=== PATIENT | female | born 1985 | race African-American/Black ===

== ENCOUNTER → 2016-04-17 | Outpatient (REF) | payer OTHER ==
[~2016-04-17] MED LIST: ACET50TA PO; BUPR10TASR PO; IBUP-1114 PO; PRENTAB55 PO; REME30TA PO
== END ==
LOC: M LAB REF 16:34
PROVIDERS: ATTEND Advanced Practice Midwife
DX: O13.3 Gestational [pregnancy-induced] hypertension without significant proteinuria, third trimester (principal); Z3A.00 Weeks of gestation of pregnancy not specified

== ENCOUNTER 2016-04-21 00:56 | Inpatient (IN) | payer OTHER ==
[2016-04-21] VITALS (46 sets, daily range): BP systolic 100–171; BP diastolic 53–90
[~2016-04-21] VITALS: Ht 157.5 cm; Wt 81.0 kg
[2016-04-21] MEDS ORDERED: LR 1,000 ML IV SCH (01:12)
[2016-04-21] MEDS ORDERED: PENICILLIN G POTASSIUM IV 5 MU in D5W MINI-BAG PLUS 100 ML IV STA (01:12)
[2016-04-21 02:07] LABS: MEAN CORPUSCULAR HEMOGLOBIN 30.5 pg (27.0-33.0); MEAN CORPUSCULAR HGB CONC 34.9 g/dl (32.0-36.5); MEAN CORPUSCULAR VOLUME 87.3 fl (80.0-96.0); RED CELL DISTRIBUTION WIDTH 12.7 % (11.5-14.5)
[2016-04-21] MEDS ORDERED: BUTORPHANOL 2 MG/ML INJ (J0595) IV ONE (02:15)
[2016-04-21] MEDS ORDERED: OXYTOCIN DRIP 30 UNITS in APPROPRIATE DILUENT 1 EA IV SCH (02:15)
[2016-04-21] MEDS ORDERED: PROMETHAZINE INJ 25 MG/ML VIAL (J2550) IV ONE (02:15)
[2016-04-21] MEDS ORDERED: FENTANYL 2MCG/ML ROPIVACAINE 0.2% NACL 250 ML CADD As Ordered ONE (02:40)
[2016-04-21] MEDS: PENICILLIN G POTASSIUM IV 2.5 MU in D5W 100 ML IV SCH ×2 (06:44→10:18)
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
[2016-04-21] MEDS ORDERED: PRENTAB55 PO (12:41)
[2016-04-21] MEDS ORDERED: BUPR10TASR PO (12:41)
[2016-04-21] MEDS ORDERED: REME30TA PO (12:41)
[2016-04-21] MEDS ORDERED: DOCUSATE SODIUM 100 MG CAP PO PRN (14:15)
[2016-04-21] MEDS ORDERED: MEASLES,MUMPS,RUBELLA VACCINE INJ (MMR-II) (90707) SC SCH (14:15)
[2016-04-21] MEDS ORDERED: ACETAMINOPHEN 500 MG TAB PO PRN (14:15)
[2016-04-21] MEDS ORDERED: ONDANSETRON 4MG/2ML VIAL (J2405) IV PRN (14:15)
[2016-04-21] MEDS ORDERED: OXYTOCIN DRIP 30 UNITS in APPROPRIATE DILUENT 1 EA IV ONE (14:15)
[2016-04-21] MEDS ORDERED: RHOGAM 300 MCG (1500 IU) INJ (J2790) IM SCH (14:15)
[2016-04-21] MEDS ORDERED: METHYLERGONOVINE MALEATE 0.2 MG TAB PO PRN (14:15)
[2016-04-21] MEDS ORDERED: DIBUCAINE 1% OINTMENT 30GM TOP PRN (14:15)
[2016-04-21] MEDS: IBUPROFEN 800 MG TAB PO PRN (16:47)
--- NOTE | 2016-04-21 17:44 | DN ---
DATE: 04/21/2016 PREDELIVERY DIAGNOSES: 37+ weeks, labor, spontaneous rupture of membranes. POSTDELIVERY DIAGNOSIS: Delivered. PROCEDURE: Spontaneous vaginal delivery. PANEL WIRER: Dr. Moise Damico ANESTHESIA: Epidural. FINDINGS: 6 pounds 6 ounces or 2888 grams female . scores 9 and 9. DELIVERY SUMMARY: After a short second stage, the patient spontaneously delivered a 6 pounds 6 ounces female infant under epidural anesthesia. There was no nuchal cord. The shoulders delivered spontaneously with ease. The cried spontaneously and was handed to the mother. The cord was doubly clamped and cut. The placenta delivered easily. The placenta appeared to be intact. The patient received intravenous Pitocin immediately after delivery of the placenta. There were no vaginal lacerations present.
[2016-04-22] MEDS: IBUPROFEN 800 MG TAB PO PRN ×2 (00:25→17:12)
[2016-04-22 05:48] VITALS: BP 105/64
[2016-04-22] MEDS: PRENATAL VITAMIN TAB PO SCH ×2 (07:12→07:44)
[2016-04-22 18:00] VITALS: BP 120/65
[2016-04-22] MEDS: PERCOCET 5MG/325MG TAB PO PRN (22:38)
[2016-04-23] MEDS: IBUPROFEN 800 MG TAB PO PRN (02:59)
[2016-04-23] MEDS: PERCOCET 5MG/325MG TAB PO PRN (04:05)
[2016-04-23 06:00] VITALS: BP 119/79
[2016-04-23] MEDS: PRENATAL VITAMIN TAB PO SCH (08:12)
[2016-04-23] MEDS ORDERED: IBUP-1114 PO (10:23)
[2016-04-23] MEDS ORDERED: ACET50TA PO (10:23)
== END 2016-04-23 11:40 | disposition home or self-care (01) | DRG 560 ==
LOC: M LDO 00:56 → M LDI 01:09 → M OBS 17:57
PROVIDERS: ADMIT Specialist; ATTEND Specialist
PROC: 10E0XZZ Delivery of Products of Conception, External Approach (ICD-10-PCS; principal; 2016-04-21)
DX: O10.02 Pre-existing essential hypertension complicating childbirth (principal); F17.210 Nicotine dependence, cigarettes, uncomplicated; Z37.0 Single live birth; Z3A.37 37 weeks gestation of pregnancy; O99.334 Smoking (tobacco) complicating childbirth; O99.824 Streptococcus B carrier state complicating childbirth

== ENCOUNTER 2018-04-04 20:26 | Emergency (ER) | payer OTHER ==
[~2018-04-04] VITALS: Ht 157.5 cm; Wt 78.2 kg
[~2018-04-04 20:26] MED LIST changes: -ACET50TA PO; +MAPA500T17 PO
[2018-04-04 20:35] VITALS: BP 120/53
[2018-04-04 21:15] LABS: BASO % 0.3 % (0.0-1.0); EOS # 0.3 10^3/uL (0.0-0.50); HEMATOCRIT 39.3 % (36.0-47.0); HEMOGLOBIN 13.1 g/dl (12.0-15.5); LYMPH # 4.3 10^3/uL (1.5-4.5); LYMPH % 41.4 % (24.0-44.0); MEAN CORPUSCULAR HEMOGLOBIN 29.1 pg (27.0-33.0); MEAN CORPUSCULAR HGB CONC 33.3 g/dl (32.0-36.5); MEAN CORPUSCULAR VOLUME 87.3 fl (80.0-96.0); MONO # 0.6 10^3/uL (0.0-0.8); MONO % 5.9 % (0.0-5.0); NEUTROPHILS # 5.2 10^3/uL (1.8-7.7); NEUTROPHILS % 49.1 % (36.0-66.0); PLATELET COUNT, AUTOMATED 242 10^3/uL (150-450); WHITE BLOOD COUNT 10.5 10^3/uL (4.0-10.0)
[2018-04-04 21:54] LABS: ALBUMIN 3.9 GM/DL (3.2-5.2); ALT/SGPT 24 U/L (12-78); BILIRUBIN,DIRECT < 0.1 MG/DL (0.0-0.2); BILIRUBIN,TOTAL 0.3 MG/DL (0.2-1.0); BLOOD UREA NITROGEN 11 MG/DL (7-18); CARBON DIOXIDE LEVEL 28 MEQ/L (21-32); CHLORIDE LEVEL 105 MEQ/L (98-107); GLOMERULAR FILTRATION RATE > 60.0 (>60); GLUCOSE, FASTING 85 MG/DL (70-100); HCG, SERUM QUANTITATIVE < 1.0 MIU/ML; POTASSIUM SERUM 4.2 MEQ/L (3.5-5.1); SODIUM LEVEL 139 MEQ/L (136-145); TOTAL PROTEIN 7.2 GM/DL (6.4-8.2)
--- NOTE | 2018-04-04 22:49 | REPVR ---
EXAM: US Pelvis Complete, Transabdominal and US Pelvis, Transvaginal EXAM DATE/TIME: 04/04/2018 10:16 PM CLINICAL HISTORY: 33 years old, female; Pain; Pelvic pain; Additional info: Left-sided pelvic pain x 1 week TECHNIQUE: Real-time transabdominal and transvaginal pelvic ultrasound (complete) with image documentation. Transvaginal imaging was used for better evaluation of the endometrium and adnexa. COMPARISON: CT ABD PELVIS W/O CONTRAST 08/02/2014 11:05 AM FINDINGS: Uterus/cervix: Uterus measures 8.6 x 4.7 x 6.6 cm. Endometrial echocomplex measures 8 mm. Right adnexa: Right ovary measures 2.2 x 1.1 x 2 cm. RI 0.63. Normal vascularity. Left adnexa: Left ovary measures 2.7 x 2.3 x 2.5 cm. RI 0.44. Normal vascularity. Free fluid: Trace free fluid cul-de-sac. Bladder: Normal. IMPRESSION: Normal study. Electronically signed by: Gus Bernardo On 04/04/2018 22:48:59 PM
[2018-04-04] MEDS ORDERED: metroNIDAZOLE (FLAGYL) 500 MG TAB PO ONE (23:00)
[2018-04-04] MEDS ORDERED: FLAG500T PO (23:01)
== END 2018-04-04 23:36 | disposition home or self-care (01) ==
LOC: M ED 20:26 → EDBD 20:26 → M ED 23:36
DX: N76.0 Acute vaginitis (principal); F17.210 Nicotine dependence, cigarettes, uncomplicated

== ENCOUNTER → 2018-07-29 | Outpatient (REF) | payer BC ==
[~2018-07-29] MED LIST changes: +FLAG500T PO; -MAPA500T17 PO; +MAPA500T2 PO
[2018-07-29 18:24] LABS: HEMATOCRIT 36.7 % (36.0-47.0); HEMOGLOBIN 12.4 g/dl (12.0-15.5); MEAN CORPUSCULAR HEMOGLOBIN 29.2 pg (27.0-33.0); MEAN CORPUSCULAR HGB CONC 33.8 g/dl (32.0-36.5); MEAN CORPUSCULAR VOLUME 86.6 fl (80.0-96.0); PLATELET COUNT, AUTOMATED 237 10^3/uL (150-450); RED BLOOD COUNT 4.24 10^6/uL (4.00-5.40); WHITE BLOOD COUNT 10.4 10^3/uL (4.0-10.0)
[2018-07-29 18:46] LABS: HCG, SERUM QUANTITATIVE 38690 MIU/ML
[2018-07-30 10:05] LABS: RUBELLA IgG QUALITATIVE IMMUNE (IMMUNE)
[2018-07-30 10:34] LABS: HEPATITIS C VIRUS ABY INDEX < 0.0 INDEX (<0.8); HIV 1&2 SCREEN CENTAUR NEGATIVE (NEGATIVE)
== END ==
LOC: M LAB REF 17:45
PROVIDERS: ATTEND Obstetrics & Gynecology
DX: O36.80X0 Pregnancy with inconclusive fetal viability, not applicable or unspecified (principal); Z3A.00 Weeks of gestation of pregnancy not specified

== ENCOUNTER 2018-08-20 14:30 | Emergency (ER) | payer BC ==
[~2018-08-20] VITALS: Ht 157.5 cm; Wt 80.8 kg
[2018-08-20] MEDS ORDERED: PREN29TA4 PO (14:38)
[2018-08-20] MEDS ORDERED: NITROFURANTOIN (MACROBID) 100 MG CAP PO ONE (16:15)
[2018-08-20 16:36] LABS: BASO % 0.2 % (0.0-1.0); EOS # 0.3 10^3/uL (0.0-0.50); EOS % 1.5 % (0.0-3.0); HEMATOCRIT 34.9 % (36.0-47.0); HEMOGLOBIN 11.7 g/dl (12.0-15.5); LYMPH # 3.6 10^3/uL (1.5-4.5); LYMPH % 21.9 % (24.0-44.0); MEAN CORPUSCULAR HEMOGLOBIN 30.2 pg (27.0-33.0); MEAN CORPUSCULAR HGB CONC 33.5 g/dl (32.0-36.5); MEAN CORPUSCULAR VOLUME 89.9 fl (80.0-96.0); MONO % 6.2 % (0.0-5.0); NEUTROPHILS # 11.4 10^3/uL (1.8-7.7); NEUTROPHILS % 69.7 % (36.0-66.0); PLATELET COUNT, AUTOMATED 246 10^3/uL (150-450); RED BLOOD COUNT 3.88 10^6/uL (4.00-5.40); WHITE BLOOD COUNT 16.4 10^3/uL (4.0-10.0)
[2018-08-20] MEDS ORDERED: MACR100C43 PO (17:30)
--- NOTE | 2018-08-20 17:42 | REP ---
Urinary tract sonogram: History: Rule out obstruction. Pain when urinating. Hematuria. patient. Comparison: No comparison. Findings: Scanning at the level of the urinary bladder shows no abnormality. heart rate is recorded at 163 beats per minute. [place]-rump length of the embryonic pole is 25.9 mm. This corresponds with a gestational age estimate of 9 weeks 3 days. Renal cortical echogenicity pattern is normal bilaterally and contours are smooth. There is no evidence of hydronephrosis, cyst, mass, or calculus in either kidney. The right kidney measures 10.5 x 6.6 x 3.8 cm. Left renal dimensions are 10.1 x 5.3 x 5.5 cm. Impression: Normal urinary tract sonography. 1-osno-1-day gestational age estimate. Viable single intrauterine gestation. Electronically Signed by Tommy Sanchez MD 08/20/2018 05:34 P
[2018-08-20 18:09] VITALS: BP 136/77
== END 2018-08-20 18:10 | disposition home or self-care (01) ==
LOC: M ED 14:30
DX: O23.41 Unspecified infection of urinary tract in pregnancy, first trimester (principal); Z86.19 Personal history of other infectious and parasitic diseases; O99.331 Smoking (tobacco) complicating pregnancy, first trimester; Z3A.09 9 weeks gestation of pregnancy; Z79.899 Other long term (current) drug therapy

== ENCOUNTER → 2018-12-19 | Outpatient (CLI) | payer BC ==
[~2018-12-19] MED LIST changes: +MACR100C43 PO; +PREN29TA4 PO
[2018-12-19 15:16] LABS: HEMATOCRIT 33.4 % (36.0-47.0); MEAN CORPUSCULAR HEMOGLOBIN 30.1 pg (27.0-33.0); MEAN CORPUSCULAR HGB CONC 32.9 g/dl (32.0-36.5); MEAN CORPUSCULAR VOLUME 91.3 fl (80.0-96.0); PLATELET COUNT, AUTOMATED 238 10^3/uL (150-450); RED BLOOD COUNT 3.66 10^6/uL (4.00-5.40); WHITE BLOOD COUNT 12.3 10^3/uL (4.0-10.0)
== END ==
LOC: M LAB 13:42
PROVIDERS: ATTEND Obstetrics & Gynecology
DX: Z34.82 Encounter for supervision of other normal pregnancy, second trimester (principal); Z36.89 Encounter for other specified antenatal screening

== ENCOUNTER → 2018-12-25 | Outpatient (CLI) | payer BC, MEDICAID | LOC: M LAB 06:56 | PROVIDERS: ATTEND Obstetrics & Gynecology | DX: Z34.83 Encounter for supervision of other normal pregnancy, third trimester (principal); Z3A.00 Weeks of gestation of pregnancy not specified ==

== ENCOUNTER → 2019-01-17 | Outpatient (CLI) | payer MEDICAID ==
[2019-01-17 12:48] LABS: URINE TOTAL PROTEIN 28.6 MG/DL (0-12)
[2019-01-17 12:53] LABS: ALT/SGPT 29 U/L (12-78); BILIRUBIN,TOTAL 0.4 MG/DL (0.2-1.0); CREATININE FOR GFR 0.53 MG/DL (0.55-1.30); GLOMERULAR FILTRATION RATE > 60.0 (>60); LDH LACTATE DEHYDROGENASE 131 U/L (84-246); URIC ACID 2.6 MG/DL (2.6-6.0)
[2019-01-17 22:30] LABS: TOTAL PROTEIN 24 HOUR URINE 314.6 MG/24HR (50-150)
== END ==
LOC: M LAB 11:36
PROVIDERS: ATTEND Obstetrics & Gynecology
DX: O24.419 Gestational diabetes mellitus in pregnancy, unspecified control (principal); Z3A.00 Weeks of gestation of pregnancy not specified

== ENCOUNTER → 2019-02-18 | Outpatient (REF) | payer MEDICAID | LOC: M LAB REF 12:26 | PROVIDERS: ATTEND Obstetrics & Gynecology | DX: O24.419 Gestational diabetes mellitus in pregnancy, unspecified control (principal) ==